=== PATIENT | female | born 1965 | race Caucasian/White ===

== ENCOUNTER → 2017-02-19 | Outpatient (CLI) | payer BC ==
[~2017-02-19] MED LIST: EPP3 IM; PRED20TA PO
== END | disposition home or self-care (01) ==
LOC: C.LABBC 14:05
PROVIDERS: ATTEND Family Medicine
DX: E55.9 Vitamin D deficiency, unspecified (principal); Z00.00 Encounter for general adult medical examination without abnormal findings; D24.9 Benign neoplasm of unspecified breast

== ENCOUNTER → 2017-09-11 | Outpatient (CLI) | payer BC ==
--- NOTE | 2017-09-11 12:29 | DIAGNOSTIC IMAGING REPORT ---
RIGHT THUMB ULTRASOUND CLINICAL HISTORY: RT THUMB PAIN COMPARISON STUDY: None. FINDINGS: Real-time sonographic imaging of the right thumb was performed with customer retention representative images submitted. At the patient's area of interest there is a 2 mm cystic focus within the soft tissues adjacent to the joint space. IMPRESSION: There is a 2 mm cystic focus within the soft tissues adjacent to the joint space of the right thumb at the palpable abnormality. Electronically signed by: Glen Arambula M.D. 09/11/2017 12:27 PM Dictated Date/Time: 09/11/2017 12:26 PM
== END | disposition home or self-care (01) ==
LOC: C.ULTR 10:48
DX: M71.38 Other bursal cyst, other site (principal)